=== PATIENT | female | born 1965 | race African-American/Black ===

== ENCOUNTER 2016-08-06 10:51 | Emergency (ER) | payer OTHER ==
[2016-08-06 11:06] VITALS: BP 125/75
--- NOTE | 2016-08-06 12:06 | RAD ---
INDICATION: Left-sided rib pain. TECHNIQUE: 4 views of the left ribs were obtained. FINDINGS: No fracture or significant focal osseous abnormality is seen. IMPRESSION: NO EVIDENCE FOR FRACTURE.
--- NOTE | 2016-08-06 12:07 | RAD ---
INDICATION: Left-sided chest pain. COMPARISON: Comparison is made with a prior chest x-ray study from March 07, 2011. TECHNIQUE: Dual-energy PA and lateral views of the chest were obtained. FINDINGS: The heart is within normal limits in size. Mediastinal and hilar contours appear within normal limits. The lungs are clear. No pleural effusion or pneumothorax is seen. IMPRESSION: NO EVIDENCE FOR ACTIVE CARDIOPULMONARY DISEASE.
--- NOTE | 2016-08-06 12:18 | UC ---
ILink,Nora, scribed for Lamont Zayas MD on 08/06/16 at 1121 . Respiratory Complaint HPI - HPI Summary HPI Summary: This 50 y/o female presents to [facility] with chief complaint of cough and left sided lateral chest pain since 2 weeks ago. She also reports chest congestion, but denies any rhinorrhea or post nasal drip. Deep breath makes the chest pain worse. Lying down on right side make the chest pain worse. Pt is in [employer] class and was able to tolerate classes. Pt recently traveled to [facility] in [place], and she impacted herself on her left lateral chest while coming down a tree. PMHx does include asthma, and she has been using inhaler frequently since the onset. - History of Current Complaint Chief Complaint: UCUpperExtremity Stated Complaint: PAIN IN RIB AREA Hx Obtained From: Patient, Medical Records Onset/Duration: Sudden Onset, Lasting Weeks, Still Present Severity Initially: Mild Severity Currently: Mild Character: Cough: Productive Aggravating Factors: Deep Breaths Alleviating Factors: Nothing Associated Signs And Symptoms: Positive: Pleuritic Chest Pain - Allergies/Home Medications Allergies/Adverse Reactions: Allergies Allergy/AdvReac Type Severity Reaction Status Date / Time Wheat Bran Allergy Diarrhea Verified 03/08/16 18:46 Home Medications: Home Medications Atovaquone-Proguanil HCl [Malarone] 1 tab PO DAILY 08/06/16 [History Confirmed 08/06/16] Multiple Vitamin [Multi Vitamin] 1 tab PO DAILY 08/06/16 [History Confirmed ] PMH/Surg Hx/FS Hx/Imm Hx Respiratory History Of: Reports: Asthma Psychological History Of: Reports: Depression Cancer History Of: Denies: Breast Cancer Other History Of: Negative For: Anticoagulant Therapy - Surgical History Surgical History: Yes Surgery Procedure, Year, and Place: LIPECTOMY-BREAST. APPENDECTOMY. HYSTERECTOMY - Family History Known Family History: Positive: Hypertension - Social History Alcohol Use: Daily Substance Use Type: None Smoking Status (MU): Never Smoked Tobacco Review of Systems Constitutional: Negative Skin: Negative Eyes: Negative ENT: Negative Respiratory: Cough Cardiovascular: Chest Pain - left lateral chest wall pain Gastrointestinal: Negative Genitourinary: Negative Motor: Negative Neurovascular: Negative Musculoskeletal: Negative Neurological: Negative Psychological: Negative All Other Systems Reviewed And Are Negative: Yes Physical Exam Triage Information Reviewed: Yes Appearance: Well-Appearing, No Pain Distress, Well-Nourished Vital Signs: Initial Vital Signs Temp 97.8 F 08/06/16 10:58 Pulse 78 08/06/16 10:58 Resp 14 08/06/16 10:58 BP 125/75 08/06/16 10:58 Pulse Ox 100 08/06/16 10:58 Vital Signs Reviewed: Yes Eyes: Positive: Conjunctiva Clear ENT: Positive: Normal ENT inspection, Hearing grossly normal, Pharynx normal Neck: Positive: Supple, Nontender, No Lymphadenopathy Respiratory: Positive: Lungs clear, Normal breath sounds, No respiratory distress, No accessory muscle use, Other: - tenderness left ribs 5,6,7 Cardiovascular: Positive: RRR, No Murmur, Pulses Normal Abdomen Description: Positive: Nontender, No Organomegaly, Soft. Negative: CVA Tenderness (R), CVA Tenderness (L), Distended, Guarding Bowel Sounds: Positive: Present Musculoskeletal Exam: Normal Skin Exam: Normal UC Diagnostic Evaluation - Laboratory O2 Sat by Pulse Oximetry: 100 - Radiology Xray Interpretation: No Acute Changes Radiology Interpretation Completed By: Radiologist - CXR and Rib, unilateral left X-ray Respiratory Course/Dx - Differential Dx/Diagnosis Provider Diagnoses: contusion left ribs Discharge - Discharge Plan Condition: Stable Disposition: HOME Patient Education Materials: Rib Contusion (ED) Referrals: Dewey Hernandez MD [Primary Care Provider] - If Needed The documentation as recorded by the Link vale Soohyun accurately reflects the service I personally performed and the decisions made by Chana koch Hossein, MD.
== END 2016-08-06 12:27 | disposition home or self-care (01) ==
LOC: UCEAST 10:51
DX: S20.212A Contusion of left front wall of thorax, initial encounter (principal); W22.09XA Striking against other stationary object, initial encounter; Z87.09 Personal history of other diseases of the respiratory system
CPT/HCPCS: 71020; 99211; G0463